=== PATIENT | female | born 1980 | race American Indian/Alaskan Native ===

== ENCOUNTER 2016-11-15 12:50 | Emergency (ER) | payer BC ==
[2016-11-15 13:02] VITALS: BP 129/85
[2016-11-15] MEDS ORDERED: TYLENOL #3 PO ONE (14:05)
--- NOTE | 2016-11-15 14:10 | Emergency Department Report ---
HPI - General Chief Complaint: Headache Time Seen by Provider: 11/15/16 13:42 - HPI HPI: 35-year-old female presents to ED complaining of intermittent, nonradiating, frontal, throbbing and aching type, 6 out of 10 intensity headache 1 week. Patient states headache got progressively worse and she was not able to go into work today. Patient denies fevers/chills/nausea/vomiting/abdominal pain diarrhea blurred vision. Patient also states that she has a bump on her left middle back that is painful to touch and red. Patient thinks she must have gotten bit by something. ED Past Medical Hx - Past Medical History Previous Medical History?: Yes Additional medical history: Gest. Diabetes - Surgical History Past Surgical History?: Yes Additional Surgical History: - Social History Smoking Status: Never Smoker Substance Use Type: None - Medications Home Medications: Home Medications Medication Instructions Recorded Confirmed Last Taken Type Acetaminophen/Codeine 1 tab PO Q6H #12 tablet 11/15/16 Unknown Rx [Acetaminophen-Codeine #3 TAB] Cephalexin [Keflex] 500 mg PO Q12HR #14 cap 11/15/16 Unknown Rx ED Review of Systems ROS: Stated complaint: HEADACHE/RASH ON BACK Other details as noted in HPI Constitutional: denies: chills, fever, weakness Eyes: denies: eye pain, eye discharge, vision change ENT: denies: ear pain, throat pain, dental pain, hearing loss, epistaxis Respiratory: denies: cough, shortness of breath, wheezing Cardiovascular: denies: chest pain, palpitations Endocrine: no symptoms reported Gastrointestinal: denies: abdominal pain, nausea, vomiting, diarrhea, constipation Genitourinary: denies: urgency, dysuria, discharge Musculoskeletal: denies: back pain, joint swelling, arthralgia Skin: denies: rash, lesions Neurological: headache (frontal, nonradiating). denies: weakness, paresthesias Psychiatric: denies: anxiety, depression Hematological/Lymphatic: denies: easy bleeding, easy bruising Physical Exam - Physical Exam Vital Signs: Vital Signs 11/15/16 12:56 Temperature 97.7 F Pulse Rate 88 Respiratory 18 Rate Blood Pressure 129/85 O2 Sat by Pulse 97 Oximetry Physical Exam: GENERAL: Alert and oriented x3, no apparent distress, Normal Gait, atraumatic. HEAD: Head is normocephalic and a-traumatic. Nontender to palpation EYES: Extra ocular muscles are intact. Pupils are equal, round, and reactive to light and accommodation. MOUTH:Mouth is well hydrated and without lesionsPatent airways. NECK: Supple. Non edematous, No carotid bruits. No lymphadenopathy or thyromegaly. LUNGS: Symetrical with respiration, No wheezing, no rales or crackles, CTAB. HEART: S1, S2 present, regular rate and rhythm without murmur, no rubs, no gallops. ABDOMEN: No organomegaly was noted,Positive bowel sounds, soft, and non- distended. . Nontender to palpation on all Quadrants, NO CVA tenderness. EXTREMITIES/MUSCULOSKELETAL: No cyanosis, clubbing, rash, lesions or edema. Full ROM bilaterally. UE/LE Pulses 2+ bilaterally. LE and NEUROLOGIC: No focal Deficit, Cranial nerves II through XII are grossly intact. No loss of sensation, patient able to perform functions instructions given. Patient is able to perform cerebellar functions such as suchto finger, [id number] and rapid alternating hand movements SKIN: Warm and dry,multiple healed scabs generalized on body Once a 2 cm erythematous, non-drainage nonbleeding tender to palpation vision on the left middle back ( flank region) . No ulceration or induration present. ED Course Vital Signs 11/15/16 12:56 Temperature 97.7 F Pulse Rate 88 Respiratory 18 Rate Blood Pressure 129/85 O2 Sat by Pulse 97 Oximetry ED Medical Decision Making - Medical Decision Making 35-year-old female presents with headache with no neural deficit ED course: Patient received 2 tablets of Tylenol 3. Discussed to pain she proper rest and hydration reduce stress headaches. Discussed with patient to follow up with her primary care physician as referred. Discussed the patient is worsening symptoms return to the ED otherwise follow- up with a neurologist for consult. Vital signs are stable. Patient is in no acute distress. GCS 15 Critical care attestation.: If time is entered above; I have spent that time in minutes in the direct care of this critically ill patient, excluding procedure time. ED Disposition Clinical Impression: Stress headache, Cellulitis of mid back region Insect bite Qualifiers: Encounter type: initial encounter Qualified Code(s): W57.XXXA - Bitten or stung by nonvenomous insect and other nonvenomous arthropods, initial encounter Disposition: DISCHARGED TO HOME OR SELFCARE Is pt being admited?: No Does the pt Need Aspirin: No Condition: Stable Instructions: Cellulitis (ED), Acute Headache (ED), Abscess (ED) Additional Instructions: Proper rest during the day. Proper eating habits and increase hydration. Avoid strenuous activities Apply heat to back 3 times a day Continue to take your Motrin 600 as needed for pain Prescriptions: Acetaminophen/Codeine [Acetaminophen-Codeine #3 TAB] 1 tab PO Q6H #12 tablet Cephalexin [Keflex] 500 mg PO Q12HR #14 cap Referrals: LATIA WESTBROOK MD [Staff Physician] - 3-5 Days TIANA ALCALA MD [Referring] - 3-5 Days GEORGINA WRIGHT MD [Referring] - 3-5 Days [facility] [Outside] - 3-5 Days Forms: Work/School Release Form(ED) Time of Disposition: 14:15
== END 2016-11-15 16:07 | disposition home or self-care (01) ==
LOC: ED 12:50
DX: R51 Headache (principal); L03.312 Cellulitis of back [any part except buttock and flank]; W57.XXXA Bitten or stung by nonvenomous insect and other nonvenomous arthropods, initial encounter; Y93.9 Activity, unspecified; Y92.9 Unspecified place or not applicable; Y99.9 Unspecified external cause status
CPT/HCPCS: 99282